=== PATIENT | male | born 1985 ===

== ENCOUNTER 2020-03-08 12:37 | Emergency (ER) | payer BC, OTHER ==
--- NOTE | 2020-03-08 13:20 | EDM.PDOC ---
ED HPI GENERAL MEDICAL PROBLEM - General Chief Complaint: Upper Extremity Injury/Pain Stated Complaint: SWELLING AND DISCOLORING OF R HAND Time Seen by Provider: 03/08/20 13:12 - History of Present Illness INITIAL COMMENTS - FREE TEXT/NARRATIVE: History of present illness: Patient presents with some discoloration over the fourth and fifth metacarpal phalangeal joints dorsally of the right dominant hand occurred a couple hours prior to arrival he does not recall any injury it is not hurting there is no other illness no symptoms of any kind he just wanted to get it checked out. He denies any blood thinners he states it was not present when he woke up this morning and he denies any kind of trauma to the hand. Full range of motion and no pain whatsoever Review of systems: As per history of present illness and below otherwise all systems reviewed and negative. Past medical history: As per history of present illness and as reviewed below otherwise noncontributory. Surgical history: As per history of present illness and as reviewed below otherwise noncontributory. Social history: No reported history of drug or alcohol abuse. Family history: As per history of present illness and as reviewed below otherwise noncontributory. Physical exam: HEENT: Atraumatic, normocephalic, pupils reactive, negative for conjunctival pallor or scleral icterus, mucous membranes moist, throat clear, neck supple, nontender, trachea midline. Lungs: Clear to auscultation, breath sounds equal bilaterally, chest nontender. Heart: S1S2, regular, negative for clicks, rubs, or JVD. Abdomen: Soft, nondistended, nontender. Negative for masses or hepatosplenomegaly. Negative for costovertebral tenderness. Pelvis: Stable nontender. Genitourinary: Deferred. Rectal: Deferred. Extremities: Atraumatic, negative for cords or calf pain. Neurovascular unremarkable. Is ecchymosis over the fourth and fifth knuckles of the right dominant hand bony tenderness there is good distal pulse motor and sensation Neuro: Awake, alert, oriented. Cranial nerves II through XII unremarkable. Cerebellum unremarkable. Motor and sensory unremarkable throughout. Exam nonfocal. Skin: Other than the aforementioned ecchymosis there no evidence of petechia oral lesions no other rash or discoloration in any other location. Diagnostics: [] Therapeutics: [] Impression: [] Plan: Discharge home [] Definitive disposition and diagnosis as appropriate pending reevaluation and review of above. - Related Data Allergies Allergy/AdvReac Type Severity Reaction Status Date / Time No Known Allergies Allergy Verified 03/08/20 13:02 Home Meds: Home Meds Levothyroxine [Synthroid] 50 mcg PO DAILY 03/08/20 [History] Past Medical History - Past Health History Medical/Surgical History: Denies Medical/Surgical History Endocrine/Metabolic History: Reports: Hypothyroidism Social & Family History - Family History Family Medical History: Noncontributory - Tobacco Use Smoking Status *Q: Light Tobacco Smoker Years of Tobacco use: 15 Packs/Tins Daily: 1 - Caffeine Use Caffeine Use: Reports: Coffee - Recreational Drug Use Recreational Drug Use: No Review of Systems - Review of Systems Review Of Systems: See Below ED EXAM, GENERAL - Physical Exam Exam: See Below Course - Vital Signs Text/Narrative:: There appears to be ecchymosis over these knuckles there is no history of injury there is no tenderness patient is encouraged to apply ice return to the ED if this is worsening or changing otherwise follow-up with her regular doctor. Last Recorded V/S: Last Vital Signs Temp 36.1 C 03/08/20 13:01 Pulse 68 03/08/20 13:01 Resp 16 03/08/20 13:01 BP 129/78 03/08/20 13:01 Pulse Ox 99 03/08/20 13:01 Departure - Departure Time of Disposition: 13:16 Disposition: Home, Self-Care 01 Condition: Good Clinical Impression: Contusion Qualifiers: Contusion area: hand - Discharge Information *PRESCRIPTION DRUG MONITORING PROGRAM REVIEWED*: Not Applicable *COPY OF PRESCRIPTION DRUG MONITORING REPORT IN PATIENT NICHOL: Not Applicable Instructions: Contusion, [id number] Referrals: PCP,None [Primary Care Provider] - Additional Instructions: The following information is given to patients seen in the emergency department who are being discharged to home. This information is to outline your options for follow-up care. We provide all patients seen in our emergency department with a follow-up referral. The need for follow-up, as well as the timing and circumstances, are variable depending upon the specifics of your emergency department visit. If you don't have a primary care physician on staff, we will provide you with a referral. We always advise you to contact your personal physician following an emergency department visit to inform them of the circumstance of the visit and for follow-up with them and/or the need for any referrals to a consulting specialist. The emergency department will also refer you to a specialist when appropriate. This referral assures that you have the opportunity for follow-up care with a specialist. All of these measure are taken in an effort to provide you with optimal care, which includes your follow-up. Under all circumstances we always encourage you to contact your private physician who remains a resource for coordinating your care. When calling for follow-up care, please make the office aware that this follow-up is from your recent emergency room visit. If for any reason you are refused follow-up, please contact the [facility] Emergency Department at and asked to speak to the emergency department charge nurse. [facility] [address] [place] [address] [id number] [address] [address] Sepsis Event Note (ED) - Evaluation Sepsis Screening Result: No Definite Risk - Focused Exam Vital Signs: Vital Signs Temp Pulse Resp BP Pulse Ox 03/08/20 13:01 36.1 C 68 16 129/78 99
== END 2020-03-08 13:26 | disposition home or self-care (01) ==
LOC: MW.ED 12:37
DX: M79.81 Nontraumatic hematoma of soft tissue (principal); E03.9 Hypothyroidism, unspecified; F17.210 Nicotine dependence, cigarettes, uncomplicated; Z79.899 Other long term (current) drug therapy
CPT/HCPCS: 99283

== ENCOUNTER 2023-03-24 08:29 | Emergency (ER) | payer BC, OTHER | END 2023-03-24 09:43 | disposition home or self-care (01) | LOC: MW.ED 08:29 | DX: H92.22 Otorrhagia, left ear (principal); E03.9 Hypothyroidism, unspecified; Z79.899 Other long term (current) drug therapy | CPT/HCPCS: 99282; 99283 ==